=== PATIENT | female | born 1970 | race Caucasian/White ===

== ENCOUNTER 2017-06-04 09:33 | Emergency (ER) | payer OTHER ==
[~2017-06-04] VITALS: Ht 185.4 cm; Wt 115.7 kg
[~2017-06-04 09:33] MED LIST: ALDACTONE25 MG PO; AMOXICILLIN 50500 MG PO; AMOXICILLIN500 M1 PO; AMOXIL 875 MG875 M1 PO; BACTRIM DS TAB1 EACH PO; BACTROBAN22 GM TP; BENTYL 20 MG TA20 M1 PO; CEFTIN 250 MG250 MG PO; DIFLUCAN150 M1 PO; DIFLUCAN150 MG PO; DIFLUCAN200 MG PO; FLEXERIL PO; GLUCOPHAGE XR500 MG PO; GLUCOPHAGE1000 MG PO; GLUCOTROL5 MG PO; GLYBURIDE 2.52.5 MG PO; HYDROCODON-ACE1 EAC7 PO; KEFLEX250 MG PO; LANTUS; LANTUS100 UNIT/M SUBQ; METFORMIN HCL500 M2 PO; METFORMIN HCL500 M3 PO; METFORMIN HCL500 MG PO; MICROZIDE12.5 MG PO; NAPROSYN500 MG PO; NOVOLOG100 UNIT/1 SQ; ONDANSETRON HCL4 M2 PO; PENICILLIN V P500 MG PO; PROMS25 WY RECTAL; REGLAN 10 MG TA10 MG PO; TOPROL XL25 MG PO; TRAMADOL 50 MG50 MG PO; VICTOZA0.6 MG/0.1 SUBQ; ZOFRAN ODT4 MG PO; ZPAK PO
[2017-06-04 10:44] LABS: INFLUENZA A ANTIGEN None Detected (None Detect); INFLUENZA B ANTIGEN None Detected (None Detect)
[2017-06-04 11:11] LABS: ABSOLUTE BASOPHILS 0.1 thou/uL (0.0-0.2); ABSOLUTE EOSINOPHILS 0.2 thou/uL (0.0-0.7); ABSOLUTE LYMPHOCYTES 1.8 thou/uL (0.8-5.3); ABSOLUTE MONOCYTES 0.9 thou/uL (0.0-1.2); ABSOLUTE NEUTROPHILS 11.2 thou/uL (1.6-8.1); BASOPHILS 0.6 %; EOSINOPHILS 1.3 %; HEMATOCRIT 45.1 % (37.0-47.0); HEMOGLOBIN 15.5 gm/dL (12.0-15.0); LYMPHOCYTES 12.8 %; MCH 30.9 pg (26.0-34.0); MCHC 34.3 g/dL (28.0-37.0); MCV 90.3 fL (80.0-100.0); MONOCYTES 6.2 %; MPV 8.2 fl. (7.2-11.1); NUCLEATED RBCS 0 /100WBC; PLATELET COUNT* 205 thou/uL (150-400); POLYS 79.1 %; RDW-CV 13.4 % (10.5-14.5); WBC 14.1 thou/uL (4.0-11.0)
[2017-06-04 11:16] LABS: CALCIUM 8.2 mg/dL (8.5-10.1); CREATININE 0.7 mg/dL (0.6-1.3); POTASSIUM 3.7 mmol/L (3.5-5.1)
[2017-06-04 11:26] LABS: ALBUMIN 3.2 g/dL (3.4-5.0); TOTAL BILIRUBIN 0.6 mg/dL (<0.1-1.0); TOTAL PROTEIN 6.2 g/dL (6.4-8.2)
[2017-06-04] MEDS ORDERED: AMOXICILLIN 50500 MG PO (11:44)
[2017-06-04] MEDS ORDERED: GLUCOPHAGE XR500 MG PO (11:44)
[2017-06-04] MEDS ORDERED: DIFLUCAN150 MG PO (11:44)
[2017-06-04 12:00] VITALS: BP 162/76
== END 2017-06-04 12:01 | disposition home or self-care (01) ==
LOC: M.ERS 09:33
PROVIDERS: Nurse Practitioner Family
DX: J06.9 Acute upper respiratory infection, unspecified (principal); E11.9 Type 2 diabetes mellitus without complications; I10 Essential (primary) hypertension; Z90.89 Acquired absence of other organs; Z91.040 Latex allergy status; Z79.4 Long term (current) use of insulin

== ENCOUNTER 2017-11-01 12:55 | Emergency (ER) | payer OTHER ==
[~2017-11-01] VITALS: Ht 185.4 cm; Wt 111.1 kg
[2017-11-01 16:09] VITALS: BP 132/97
== END 2017-11-01 16:11 | disposition home or self-care (01) ==
LOC: M.ERS 12:55
DX: S01.01XA Laceration without foreign body of scalp, initial encounter (principal); E11.9 Type 2 diabetes mellitus without complications; I10 Essential (primary) hypertension; Z91.040 Latex allergy status; W01.0XXA Fall on same level from slipping, tripping and stumbling without subsequent striking against object, initial encounter; Y93.89 Activity, other specified; Y92.89 Other specified places as the place of occurrence of the external cause; Y99.8 Other external cause status

== ENCOUNTER 2018-04-10 07:17 | Emergency (ER) | payer OTHER ==
[~2018-04-10] VITALS: Ht 185.4 cm; Wt 109.8 kg
[2018-04-10] MEDS ORDERED: NASACORT10.8 ML INH (07:34)
[2018-04-10] MEDS ORDERED: TYLENOL EXTRA500 MG PO (07:34)
[2018-04-10] MEDS ORDERED: ADVIL200 M3 PO (07:34)
[2018-04-10 07:41] LABS: URINE BILIRUBIN NEGATIVE (Negative); URINE BLOOD TRACE (Negative); URINE CLARITY CLEAR; URINE COLOR YELLOW; URINE GLUCOSE-RANDOM 3+ (Negative); URINE KETONES TRACE (Negative); URINE LEUKOCYTES-REFLEX 1+ (Negative); URINE NITRITE-REFLEX NEGATIVE (Negative); URINE PROTEIN NEGATIVE (Negative); URINE UROBILINOGEN 0.2 E.U./dl (0.2-1.0)
[2018-04-10 07:57] LABS: ABSOLUTE BASOPHILS 0.1 thou/uL (0.0-0.2); ABSOLUTE EOSINOPHILS 0.2 thou/uL (0.0-0.7); ABSOLUTE LYMPHOCYTES 2.1 thou/uL (0.8-5.3); ABSOLUTE MONOCYTES 0.6 thou/uL (0.0-1.2); ABSOLUTE NEUTROPHILS 5.8 thou/uL (1.6-8.1); BASOPHILS 0.9 %; HEMATOCRIT 47.6 % (37.0-47.0); HEMOGLOBIN 16.5 gm/dL (12.0-15.0); LYMPHOCYTES 24.1 %; MCH 30.8 pg (26.0-34.0); MCHC 34.7 g/dL (28.0-37.0); MCV 88.9 fL (80.0-100.0); MONOCYTES 7.1 %; MPV 8.5 fl. (7.2-11.1); NUCLEATED RBCS 0 /100WBC; PLATELET COUNT* 245 thou/uL (150-400); POLYS 65.9 %; RBC 5.36 mil/uL (4.20-5.00); RDW-CV 12.5 % (10.5-14.5); WBC 8.8 thou/uL (4.0-11.0)
[2018-04-10 08:02] LABS: CREATININE 0.8 mg/dL (0.6-1.3); POTASSIUM 4.2 mmol/L (3.5-5.1)
[2018-04-10 08:06] LABS: ALBUMIN 3.7 g/dL (3.4-5.0); TOTAL BILIRUBIN 0.6 mg/dL (<0.1-1.0); TOTAL PROTEIN 7.4 g/dL (6.4-8.2)
[2018-04-10 08:42] LABS: SQUAMOUS 4-10 Moderate /LPF (0-3)
[2018-04-10 08:43] LABS: URINE WBC-REFLEX >25 Many /HPF (0-5)
[2018-04-10] MEDS ORDERED: GLUCOTROL5 MG PO (08:43)
[2018-04-10] MEDS ORDERED: DIFLUCAN150 MG PO (08:43)
[2018-04-10] MEDS ORDERED: GLUCOPHAGE850 MG PO (08:43)
[2018-04-10] MEDS ORDERED: CIPROFLOXACIN500 M1 PO (08:43)
[2018-04-10 08:44] LABS: URINE RBC None Seen /HPF (0-2); WBC CLUMPS Few (None Seen)
[2018-04-10 08:45] LABS: BACTERIA-REFLEX 1-9 Few /HPF (None Seen); CASTS None Seen /LPF (None Seen); MUCUS None Seen strn/LPF (None Seen)
[2018-04-10 08:46] LABS: CRYSTALS None Seen /LPF (None Seen); YEAST-REFLEX Present (None Seen)
[2018-04-10 08:59] VITALS: BP 146/88
== END 2018-04-10 08:59 | disposition home or self-care (01) ==
LOC: M.ERS 07:17
PROVIDERS: Family Medicine
DX: N39.0 Urinary tract infection, site not specified (principal); E11.9 Type 2 diabetes mellitus without complications; I10 Essential (primary) hypertension

== ENCOUNTER 2018-05-12 15:12 | Inpatient (IN) | payer OTHER ==
[~2018-05-12] VITALS: Ht 185.4 cm; Wt 116.1 kg
[~2018-05-12 15:12] MED LIST changes: +ADVIL200 M3 PO; +CIPROFLOXACIN500 M1 PO; +GLUCOPHAGE850 MG PO; +NASACORT10.8 ML INH; +TYLENOL EXTRA500 MG PO
[2018-05-12 15:27] VITALS: BP 205/108
[2018-05-12] MEDS ORDERED: GLUCOPHAGE XR500 MG PO (15:32)
[2018-05-12 16:00] LABS: URINE BILIRUBIN NEGATIVE (Negative); URINE BLOOD 1+ (Negative); URINE COLOR YELLOW; URINE GLUCOSE-RANDOM 2+ (Negative); URINE KETONES NEGATIVE (Negative); URINE NITRITE-REFLEX NEGATIVE (Negative); URINE PROTEIN 1+ (Negative); URINE SPECIFIC GRAVITY >= 1.030 (1.005-1.030); URINE UROBILINOGEN 0.2 E.U./dl (0.2-1.0)
[2018-05-12 16:01] LABS: URINE CLARITY CLOUDY; URINE LEUKOCYTES-REFLEX 2+ (Negative)
[2018-05-12 16:02] LABS: ABSOLUTE BASOPHILS 0.1 thou/uL (0.0-0.2); ABSOLUTE EOSINOPHILS 0.2 thou/uL (0.0-0.7); ABSOLUTE LYMPHOCYTES 3.2 thou/uL (0.8-5.3); ABSOLUTE MONOCYTES 0.9 thou/uL (0.0-1.2); ABSOLUTE NEUTROPHILS 5.6 thou/uL (1.6-8.1); BASOPHILS 0.7 %; EOSINOPHILS 2.4 %; HEMATOCRIT 46.5 % (37.0-47.0); LYMPHOCYTES 31.9 %; MCH 30.8 pg (26.0-34.0); MCHC 34.4 g/dL (28.0-37.0); MCV 89.5 fL (80.0-100.0); MONOCYTES 9.3 %; MPV 8.2 fl. (7.2-11.1); NUCLEATED RBCS 0 /100WBC; PLATELET COUNT* 255 thou/uL (150-400); POLYS 55.7 %
[2018-05-12 16:07] LABS: CALCIUM 9.6 mg/dL (8.5-10.1); CREATININE 0.7 mg/dL (0.6-1.3); POTASSIUM 4.1 mmol/L (3.5-5.1)
[2018-05-12 16:11] LABS: TOTAL BILIRUBIN 0.5 mg/dL (<0.1-1.0); TOTAL PROTEIN 7.4 g/dL (6.4-8.2)
[2018-05-12 16:15] LABS: NT-PRO BRAIN NAT PEPTIDE 340 pg/mL (<300); TROPONIN-I LEVEL <0.06 ng/mL (<0.06)
[2018-05-12 16:24] LABS: MUCUS None Seen strn/LPF (None Seen); SQUAMOUS >10 Many /LPF (0-3); URINE WBC-REFLEX >25 Many /HPF (0-5); WBC CLUMPS Few (None Seen)
[2018-05-12 16:25] LABS: URINE RBC 0-2 Rare /HPF (0-2); YEAST-REFLEX Present (None Seen)
[2018-05-12 16:31] LABS: BACTERIA-REFLEX 1-9 Few /HPF (None Seen); CASTS None Seen /LPF (None Seen); CRYSTALS None Seen /LPF (None Seen)
[2018-05-12 17:32] LABS: AMP/METHAMP Negative (Negative); BARBITURATES Negative (Negative); BENZODIAZEPINES Negative (Negative); COCAINE Negative (Negative); METHADONE Negative (Negative); OPIATES Negative (Negative); PCP Negative (Negative); THC POSITIVE (Negative)
[2018-05-12 19:46] VITALS: BP 127/76
[2018-05-13] VITALS: BP 134/83; BP 93/50
[2018-05-13 02:10] LABS: GLYCOHEMOGLOBIN (HGB A1C) 11.4 % (4.8-5.6)
[2018-05-13 04:00] VITALS: BP 140/78
[2018-05-13 05:59] LABS: HEMATOCRIT 40.7 % (37.0-47.0); MCHC 34.3 g/dL (28.0-37.0); MCV 90.4 fL (80.0-100.0); MPV 8.6 fl. (7.2-11.1); NUCLEATED RBCS 0 /100WBC; PLATELET COUNT* 197 thou/uL (150-400); RDW-CV 12.8 % (10.5-14.5); WBC 7.9 thou/uL (4.0-11.0)
[2018-05-13 06:16] LABS: ANION GAP 6 mmol/L (7-16); BUN 10 mg/dL (7-18); CALCIUM 8.6 mg/dL (8.5-10.1); CHLORIDE 102 mmol/L (98-107); CHOLESTEROL 116 mg/dL (<200); CO2 30 mmol/L (21-32); CREATININE 0.6 mg/dL (0.6-1.3); GLUCOSE 241 mg/dL (70-99); HDL CHOLESTEROL 44 mg/dL (>40); LDL CHOLESTEROL 36 mg/dL (<100); POTASSIUM 3.9 mmol/L (3.5-5.1); SERUM ASSESSMENT Clear; SODIUM 138 mmol/L (136-145); TC:HDL 2.6 Ratio (Not establshd); TRIGLYCERIDE 181 mg/dL (<150); TROPONIN-I LEVEL <0.06 ng/mL (<0.06); VLDL 36 mg/dL (<40)
[2018-05-13 06:56] LABS: ABSOLUTE EOSINOPHILS 0.2 thou/uL (0.0-0.7); ABSOLUTE LYMPHOCYTES 2.6 thou/uL (0.8-5.3); ABSOLUTE MONOCYTES 0.8 thou/uL (0.0-1.2); ABSOLUTE NEUTROPHILS 4.2 thou/uL (1.6-8.1); BASOPHILS 0.5 %; EOSINOPHILS 2.5 %; LYMPHOCYTES 33.1 %; MONOCYTES 10.7 %; POLYS 53.2 %
--- NOTE | 2018-05-13 10:57 | EKG ---
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1970 Requested By: Terence Holley Order Number: [id number] MD: Lane Blankenship Measurements Intervals [place] Rate: 80 P: 31 [place]: 193 QRS: -27 QRSD: 147 T: 86 QT: 425 QTc: 491 Interpretive Statements Sinus rhythm Probable left atrial enlargement Left bundle branch block Compared to ECG 02/02/2017 16:44:05 Left bundle-branch block now present Electronically Signed On 05-13-2018 10:56:56 CLINICAL ASST by aLne Blankenship [email or web address] <ELECTRONICALLY SIGNED> By: Lane Blankenship MD, FAC 05/13/[address] Blank[address]hip MD, [facility] /EPI
[2018-05-13 11:45] VITALS: BP 192/111
--- NOTE | 2018-05-13 14:45 | 2DMMODE ---
[place] [address] 2 D/M-MODE ECHOCARDIOGRAM Name: GENESIS COATES Sean Room: [place] [address] ADM IN [facility]#: [id number] Admission: 05/12/18 Attend Phys: Ced Khan, Discharge: Date of : 68 Date of Service: 05/13/18 1445 Report #: [id number] THIS REPORT FOR: //name// APPROVED REPORT Study performed: 05/13/2018 10:28:07 EXAM: Comprehensive 2D, Doppler, and color-flow Echocardiogram Patient Location: In-Patient Room #: [facility] Status: routine BSA: 2.39 HR: 71 bpm BP: 140/78 mmHg Rhythm: NSR Other Information Study Quality: Good Indications Hypertension/HDD 2D Dimensions IVSd: 17.02 (7-11mm) LVOT Diam: 23.03 (18-24mm) LVDd: 38.86 mm PWd: 15.61 (7-11mm) Ascending Ao: 27.66 (22-36mm) LVDs: 28.27 (25-40mm) Aortic Root: 32.48 mm Volumes Left Atrial Volume (Systole) LA ESV Index: 24.00 mL/m2 Aortic Valve AoV Peak [place].: 1.63 m/s AO Peak Gr.: 10.57 mmHg LVOT Max P.56 mmHg AO Mean Gr.: 5.88 mmHg LVOT Mean P.26 mmHg LVOT Max V: 0.80 m/s AO V2 VTI: 27.94 cm LVOT Mean V: 0.51 m/s DOTTY (VTI): 2.38 cm2 LVOT V1 VTI: 15.94 cm Mitral Valve E/A Ratio: 0.80 MV Decel. Time: 169.93 ms MV E Max [place]enton.: 0.75 m/s MV PHT: 49.28 [place] [address] 2 D/M-MODE ECHOCARDIOGRAM Name: GENESIS COATES Room: [address] IN [facility].#: [id number] Admission: 05/12/18 Attend Phys: Ced Khan, Discharge: Date of : 68 Date of Service: 05/13/18 1445 Report #: [id number] MVA (PHT): 4.46 cm2 TDI E/Lateral E': 7.50 E/Medial E': 9.38 Medial E' [place].: 0.08 m/s Lateral E' [place].: 0.10 m/s Pulmonary Valve PV Peak [place].: 1.12 m/s PV Peak Gr.: 4.98 mmHg Left Ventricle The left ventricle is normal size. There is dyssynergy of the left ventricle in systole consistent with bundle branch block. Moderate concentric left ventricular hypertrophy. Left ventricular systolic function is normal. LVEF is 55-60%. Grade I - abnormal relaxation pattern. Right Ventricle The right ventricle is normal size. The right ventricular systolic function is normal. Atria The left atrium size is normal. The right atrium size is normal. Aortic Valve The aortic valve is normal in structure. No aortic regurgitation is present. There is no aortic valvular stenosis. Mitral Valve The mitral valve is normal in structure. Trace mitral regurgitation. No evidence of mitral valve stenosis. Tricuspid Valve The tricuspid valve is normal in structure. There is no tricuspid valve regurgitation noted. Pulmonic Valve The pulmonary valve is normal in structure. There is no pulmonic valvular regurgitation. Great Vessels The aortic root is normal in size. IVC is normal in size and collapses >50% [place] [address] 2 D/M-MODE ECHOCARDIOGRAM Name: GENESIS COATES Room: [address] IN [facility]#: [id number] Admission: 05/12/18 Attend Phys: Ced Khan, Discharge: Date of : 68 Date of Service: 05/13/18 1445 Report #: [id number] inspiration. Pericardium There is no pericardial effusion. <Conclusion> The left ventricle is normal size. Moderate concentric left ventricular hypertrophy. Left ventricular systolic function is normal. LVEF is 55-60%. Grade I - abnormal relaxation pattern. Trace mitral regurgitation. IVC is normal in size and collapses >50% with inspiration. There is dyssynergy of the left ventricle in systole consistent with bundle branch block. <ELECTRONICALLY SIGNED> By: Landon Weir MD, FACC 05/13/18 1445 1445 1445 Landon Weir MD, FACC /INF
[2018-05-13] MEDS ORDERED: COZAAR 25 MG TA25 M1 PO (16:40)
[2018-05-13] MEDS ORDERED: NORVASC10 MG PO (16:44)
[2018-05-13] MEDS ORDERED: FLOMAX0.4 MG PO (16:46)
[2018-05-13] MEDS ORDERED: DIFLUCAN200 MG PO (16:47)
[2018-05-13 16:48] VITALS: BP 192/111
[2018-05-13 19:10] VITALS: BP 192/111
--- NOTE | 2018-05-14 16:51 | CARDNUC ---
[place] [address] CARDIAC NUCLEAR IMAGING REPORT Name: YANCIAUTUMNGENESIS Sean Room: [address]#: [id number] Admission: 05/12/18 Attend Phys: Ced Khan, Discharge: 05/13/18 Date of : 68 Date of Service: 05/14/18 1650 Report #: [id number] THIS REPORT FOR: //name// APPROVED REPORT Study performed: 05/13/2018 10:32:00 Indication: Chest pain Patient Location: In-Patient Room #: [facility] Stress Tech: Nicky Hodge Stress Nurse: Kaitlyn Santoro RN Ht: 6 ft 0 in Wt: 255 lbs BSA: 2.36 m2 BMI: 34.58 Medical History Medical History: Angina, HTN, Obesity , LBBB, DM. Medications: Cozaar, Glipizide, Amlodipine, Metformin, Hydralazine Allergies: Latex Cardiac Risk Factors: DM, FHX of CAD, HTN, HX of obesity. Previous Cardiac Procedures: None Pretest Chest Pain Characteristics: No chest pain Exercise History: Physically active Physical Disabilities: LBBB Meds Held (24 hrs): None Pharmacologic Stress Pharmacologic stress test was performed by injecting Regadenoson 0.4 mg IV push over 10-15 seconds immediately followed by the intravenous injection of 36.0 mCi of Tc-99m Sestamibi. Time of stress injection: 17:10 Date: 05/13/2018 Administration Route: IV Administration Site: Left Hand Heart Rate at time of stress injection: 124 bpm. Gated Stress SPECT was performed 40 minutes after stress injection. The images were gated to evaluate regional wall motion and calculate left ventricular ejection fraction. Prone imaging was performed. Stress Test Details Stress Test: Pharmacologic stress testing performed using 0.4 [place] [address] CARDIAC NUCLEAR IMAGING REPORT Name: GENESIS COATES Room: [address]#: [id number] Admission: 05/12/18 Attend Phys: Ced Khan, Discharge: 05/13/18 Date of : 68 Date of Service: 05/14/18 1650 Report #: [id number] per 5 mL given IV over 10 seconds. Reason for pharmacologic stress test: LBBB. HR Max Heart Rate (APMHR): 171 bpm Resting HR: 94 bpm Target HR (85% APMHR): 145 bpm Max HR Achieved: 124 bpm % of APMHR: 72 Recovery HR: 115 bpm BP Resting BP: 141/95 mmHg Max BP: 191/114 mmHg Recovery BP: 153/106 mmHg ECG Resting ECG: Sinus Rhythm, LBBB Stress ECG: Sinus Rhythm, LBBB ST Change: None Arrhythmia: None Recovery ECG: Sinus Rhythm, LBBB Recovery ST Change: None Recovery Arrhythmia: None Clinical The patient tolerated Lexiscan infusion without significant symptoms. Nurse Comments 48 year old inpatient presented with high anxiety and tearful. LBBB noted on EKG resulted in patient not walking for Lexiscan stress test. Patient tolerated sitting lexiscan well with minimal symptoms. Recovery unremarkable with PO caffeine. Patient escored via wheelchair to Nuclear Medicine for images. Patient stable with no complaints at that time. Stress ECG Conclusion The baseline 12-lead EKG shows sinus rhythm with left bundle-branch block. EKGs during and post Lexiscan infusion show sinus rhythm with left bundle-branch block. There were no significant stress-induced arrhythmias. Study Quality Study: [place] [address] CARDIAC NUCLEAR IMAGING REPORT Name: JAXONGENESIS Sean Room: [address]#: [id number] Admission: 05/12/18 Attend Phys: Ced Khan, Discharge: 05/13/18 Date of : 68 Date of Service: 05/14/18 1650 Report #: [id number] Artifact: No artifact Study Data Post stress, the left ventricular ejection was 59%.. Perfusion Post stress images obtained in the supine and prone position show uniform uptake of the request of the myocardium. Wall Motion Global LV systolic function appears preserved with an ejection fraction of 59%. Wall motion abnormalities were not appreciated. Nuclear Conclusion ECG Findings: non-diagnostic Clinical Findings: negative for ischemia Nuclear Findings: negative for ischemia Exercise Capacity: not assessed Left Ventricular Function: preserved Risk Study: low Myocardial perfusion images show no defect to suggest infarct or ischemia. Local LV systolic function appears normal on gated studies. This is a low risk study. <Conclusion> The baseline 12-lead EKG shows sinus rhythm with left bundle-branch block. EKGs during and post Lexiscan infusion show sinus rhythm with left bundle-branch block. There were no significant stress-induced arrhythmias. <ELECTRONICALLY SIGNED> By: Landon Weir MD, FACC 05/14/181649 49 49 Landon Weir MD, FACC /INF
== END 2018-05-13 19:04 | disposition left against medical advice (07) | DRG 690 ==
LOC: M.ERS 15:12 → M.2W 16:38 → M.TBA-ER 16:38 → M.2W 19:21
PROVIDERS: Nurse Practitioner Family; ADMIT Internal Medicine
DX: N30.90 Cystitis, unspecified without hematuria (principal); R33.9 Retention of urine, unspecified; E11.22 Type 2 diabetes mellitus with diabetic chronic kidney disease; N18.2 Chronic kidney disease, stage 2 (mild); I44.7 Left bundle-branch block, unspecified; R07.89 Other chest pain; N20.0 Calculus of kidney; I12.9 Hypertensive chronic kidney disease with stage 1 through stage 4 chronic kidney disease, or unspecified chronic kidney disease; I16.0 Hypertensive urgency; R35.0 Frequency of micturition; E86.0 Dehydration; Z53.21 Procedure and treatment not carried out due to patient leaving prior to being seen by health care provider; Z98.891 History of uterine scar from previous surgery; Z79.84 Long term (current) use of oral hypoglycemic drugs; Z91.14 Patient's other noncompliance with medication regimen; Z79.899 Other long term (current) drug therapy; Z91.040 Latex allergy status

== ENCOUNTER 2019-03-01 23:30 | Emergency (ER) | payer OTHER ==
[~2019-03-01] VITALS: Ht 185.4 cm; Wt 113.4 kg
[~2019-03-01 23:30] MED LIST changes: +COZAAR 25 MG TA25 M1 PO; +FLOMAX0.4 MG PO; +NORVASC10 MG PO
[2019-03-01] MEDS ORDERED: NEURONTIN 300M300 M2 PO (23:42)
[2019-03-01] MEDS ORDERED: BUPROPION XL150 MG PO (23:42)
[2019-03-01] MEDS ORDERED: HYDROCHLOROTHIA25 M2 PO (23:43)
[2019-03-01] MEDS ORDERED: TRESIBA100 UNIT/1 SUBQ (23:44)
[2019-03-01 23:54] LABS: ABSOLUTE BASOPHILS 0.1 thou/uL (0.0-0.2); ABSOLUTE EOSINOPHILS 0.2 thou/uL (0.0-0.7); ABSOLUTE LYMPHOCYTES 3.2 thou/uL (0.8-5.3); ABSOLUTE MONOCYTES 1.2 thou/uL (0.0-1.2); ABSOLUTE NEUTROPHILS 8.5 thou/uL (1.6-8.1); BASOPHILS 0.6 %; EOSINOPHILS 1.7 %; HEMATOCRIT 43.1 % (37.0-47.0); HEMOGLOBIN 15.1 gm/dL (12.0-15.0); LYMPHOCYTES 24.4 %; MCHC 35.1 g/dL (28.0-37.0); MCV 88.2 fL (80.0-100.0); MPV 7.7 fl. (7.2-11.1); NUCLEATED RBCS 0 /100WBC; PLATELET COUNT* 271 thou/uL (150-400); POLYS 64.3 %; RBC 4.89 mil/uL (4.20-5.00); RDW-CV 13.2 % (10.5-14.5); WBC 13.2 thou/uL (4.0-11.0)
[2019-03-02 00:01] LABS: CALCIUM 9.4 mg/dL (8.5-10.1); CREATININE 0.8 mg/dL (0.6-1.3); POTASSIUM 3.7 mmol/L (3.5-5.1)
[2019-03-02 00:06] LABS: ALBUMIN 3.7 g/dL (3.4-5.0); TOTAL BILIRUBIN 0.7 mg/dL (<0.1-1.0); TOTAL PROTEIN 7.6 g/dL (6.4-8.2)
[2019-03-02 00:14] LABS: INFLUENZA A ANTIGEN Negative (Negative); INFLUENZA B ANTIGEN Negative (Negative)
[2019-03-02 00:51] LABS: URINE BILIRUBIN NEGATIVE (Negative); URINE BLOOD NEGATIVE (Negative); URINE CLARITY CLEAR; URINE COLOR YELLOW; URINE GLUCOSE-RANDOM 1+ (Negative); URINE KETONES NEGATIVE (Negative); URINE LEUKOCYTES-REFLEX NEGATIVE (Negative); URINE NITRITE-REFLEX NEGATIVE (Negative); URINE PROTEIN NEGATIVE (Negative); URINE UROBILINOGEN 0.2 E.U./dl (0.2-1.0)
[2019-03-02] MEDS ORDERED: HYDROCODON-ACE1 EAC8 PO (01:03)
[2019-03-02] MEDS ORDERED: ZOFRAN ODT4 MG PO (01:03)
[2019-03-02 01:25] VITALS: BP 131/85
--- NOTE | 2019-03-02 17:07 | EKG ---
[place] [address] ELECTROCARDIOGRAM REPORT Name: YANCIAUTUMNGENESIS 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 : 1970 Requested By: Saima Cole Order Number: [id number] MD: Lane Blankenship Measurements Intervals [place] Rate: 86 P: 36 ID: 177 QRS: -36 QRSD: 140 T: 102 QT: 411 QTc: 492 Interpretive Statements Sinus rhythm Left bundle branch block Baseline wander in lead(s) V2 Compared to ECG 05/12/2018 16:02:42 No significant changes Electronically Signed On 03-02-2019 17:07:[address] Blankenship [email or web address] <ELECTRONICALLY SIGNED> By: Lane Blankenship MD, [facility] 03/02/[address] Blankenship MD, FACC /EPI
--- NOTE | 2019-03-02 17:08 | EKG ---
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
== END 2019-03-02 01:25 | disposition home or self-care (01) ==
LOC: M.ERS 23:30
PROVIDERS: Emergency Medicine
DX: J06.9 Acute upper respiratory infection, unspecified (principal); R42 Dizziness and giddiness; E11.9 Type 2 diabetes mellitus without complications; I10 Essential (primary) hypertension; Z98.51 Tubal ligation status; Z98.890 Other specified postprocedural states; Z79.4 Long term (current) use of insulin; Z91.040 Latex allergy status

== ENCOUNTER 2019-05-10 13:10 | Emergency (ER) | payer OTHER ==
[~2019-05-10] VITALS: Ht 185.4 cm; Wt 97.5 kg
[~2019-05-10 13:10] MED LIST changes: +BUPROPION XL150 MG PO; +HYDROCHLOROTHIA25 M2 PO; +HYDROCODON-ACE1 EAC8 PO; +NEURONTIN 300M300 M2 PO; +TRESIBA100 UNIT/1 SUBQ
[2019-05-10 13:50] LABS: HEMATOCRIT 47.2 % (37.0-47.0); HEMOGLOBIN 16.8 gm/dL (12.0-15.0); MCH 31.2 pg (26.0-34.0); MCHC 35.7 g/dL (28.0-37.0); MCV 87.5 fL (80.0-100.0); MPV 8.4 fl. (7.2-11.1); NUCLEATED RBCS 0 /100WBC; PLATELET COUNT* 244 thou/uL (150-400); RBC 5.39 mil/uL (4.20-5.00); RDW-CV 12.9 % (10.5-14.5); WBC 13.2 thou/uL (4.0-11.0)
[2019-05-10 13:56] LABS: CALCIUM 8.8 mg/dL (8.5-10.1); CREATININE 0.7 mg/dL (0.6-1.3)
[2019-05-10 14:01] LABS: ALBUMIN 3.8 g/dL (3.4-5.0); TOTAL BILIRUBIN 0.7 mg/dL (<0.1-1.0); TOTAL PROTEIN 7.7 g/dL (6.4-8.2)
[2019-05-10 14:01] LABS: INFLUENZA A ANTIGEN Negative (Negative); INFLUENZA B ANTIGEN Negative (Negative)
[2019-05-10 14:39] LABS: ABSOLUTE LYMPHOCYTES 0.7 thou/uL (0.8-5.3); ABSOLUTE MONOCYTES 1.1 thou/uL (0.0-1.2); ABSOLUTE NEUTROPHILS 11.5 thou/uL (1.6-8.1); ATYPICAL LYMPHS 3 %; PLATELET ESTIMATE ADEQUATE
[2019-05-10 14:42] LABS: URINE BILIRUBIN NEGATIVE (Negative); URINE BLOOD NEGATIVE (Negative); URINE CLARITY CLEAR; URINE COLOR YELLOW; URINE GLUCOSE-RANDOM 2+ (Negative); URINE LEUKOCYTES-REFLEX NEGATIVE (Negative); URINE NITRITE-REFLEX NEGATIVE (Negative); URINE PROTEIN NEGATIVE (Negative); URINE UROBILINOGEN 0.2 E.U./dl (0.2-1.0)
[2019-05-10 14:45] LABS: URINE KETONES 3+ (Negative)
[2019-05-10] MEDS ORDERED: KEFLEX500 M1 PO (15:43)
[2019-05-10] MEDS ORDERED: ZOFRAN ODT4 MG DISSOLVE (15:43)
[2019-05-10 16:08] VITALS: BP 130/80
== END 2019-05-10 16:10 | disposition home or self-care (01) ==
LOC: M.ERS 13:10
PROVIDERS: Nurse Practitioner Family
DX: S90.822A Blister (nonthermal), left foot, initial encounter (principal); K52.9 Noninfective gastroenteritis and colitis, unspecified; R11.2 Nausea with vomiting, unspecified; I10 Essential (primary) hypertension; E11.9 Type 2 diabetes mellitus without complications; Z90.49 Acquired absence of other specified parts of digestive tract; Z98.890 Other specified postprocedural states; Z98.51 Tubal ligation status; Z91.040 Latex allergy status; X58.XXXA Exposure to other specified factors, initial encounter; Y93.89 Activity, other specified; Y92.89 Other specified places as the place of occurrence of the external cause; Y99.8 Other external cause status

== ENCOUNTER 2020-03-08 13:01 | Emergency (ER) | payer OTHER ==
[~2020-03-08] VITALS: Ht 185.4 cm; Wt 117.9 kg
[~2020-03-08 13:01] MED LIST changes: +KEFLEX500 M1 PO; +ZOFRAN ODT4 MG DISSOLVE
[2020-03-08] MEDS ORDERED: AUGMENTIN 875-1 EACH PO (14:20)
[2020-03-08] MEDS ORDERED: IBUPROFEN 800800 M1 PO (14:20)
[2020-03-08] MEDS ORDERED: PHENERGAN 25 MG25 M1 PO (14:20)
[2020-03-08 14:45] VITALS: BP 120/77
== END 2020-03-08 14:45 | disposition home or self-care (01) ==
LOC: M.ERS 13:01
DX: J06.9 Acute upper respiratory infection, unspecified (principal); Z20.828 Contact with and (suspected) exposure to other viral communicable diseases; E11.9 Type 2 diabetes mellitus without complications; I10 Essential (primary) hypertension; Z98.51 Tubal ligation status; Z90.89 Acquired absence of other organs; Z98.890 Other specified postprocedural states; Z79.899 Other long term (current) drug therapy; Z79.4 Long term (current) use of insulin; Z91.048 Other nonmedicinal substance allergy status; Z91.040 Latex allergy status

== ENCOUNTER 2020-10-24 16:50 | Emergency (ER) | payer OTHER ==
[~2020-10-24] VITALS: Ht 185.4 cm; Wt 122.5 kg
[~2020-10-24 16:50] MED LIST changes: +AUGMENTIN 875-1 EACH PO; +IBUPROFEN 800800 M1 PO; +PHENERGAN 25 MG25 M1 PO
[2020-10-24] MEDS ORDERED: NEURONTIN 300M300 M2 PO (17:05)
[2020-10-24] MEDS ORDERED: METFORMIN HCL500 M3 PO (17:05)
[2020-10-24] MEDS ORDERED: LOSARTAN-HCTZ1 EAC3 PO (17:05)
[2020-10-24] MEDS ORDERED: LANTUS SUBQ (17:06)
[2020-10-24 19:01] LABS: ABSOLUTE BASOPHILS 0.1 thou/uL (0.0-0.2); ABSOLUTE EOSINOPHILS 0.3 thou/uL (0.0-0.7); ABSOLUTE LYMPHOCYTES 3.3 thou/uL (0.8-5.3); ABSOLUTE MONOCYTES 1.2 thou/uL (0.0-1.2); ABSOLUTE NEUTROPHILS 5.1 thou/uL (1.6-8.1); BASOPHILS 0.8 %; EOSINOPHILS 2.9 %; HEMATOCRIT 45.4 % (37.0-47.0); HEMOGLOBIN 15.9 gm/dL (12.0-15.0); LYMPHOCYTES 33.1 %; MCH 31.8 pg (26.0-34.0); MCHC 35.1 g/dL (28.0-37.0); MCV 90.5 fL (80.0-100.0); MONOCYTES 11.6 %; MPV 7.8 fl. (7.2-11.1); NUCLEATED RBCS 0 /100WBC; PLATELET COUNT* 259 thou/uL (150-400); POLYS 51.6 %; RBC 5.02 mil/uL (4.20-5.00); RDW-CV 13.9 % (10.5-14.5)
[2020-10-24 19:09] LABS: CALCIUM 8.6 mg/dL (8.5-10.1); CREATININE 0.7 mg/dL (0.6-1.3); POTASSIUM 4.3 mmol/L (3.5-5.1)
[2020-10-24 19:20] LABS: ALBUMIN 3.8 g/dL (3.4-5.0); TOTAL BILIRUBIN 0.5 mg/dL (<0.1-1.0)
[2020-10-24 20:21] VITALS: BP 147/97
== END 2020-10-24 20:21 | disposition home or self-care (01) ==
LOC: M.ERS 16:50
PROVIDERS: Nurse Practitioner Psychiatric/Mental Health
DX: R22.41 Localized swelling, mass and lump, right lower limb (principal); M79.661 Pain in right lower leg; I10 Essential (primary) hypertension; E11.9 Type 2 diabetes mellitus without complications; Z91.040 Latex allergy status; Z88.8 Allergy status to other drugs, medicaments and biological substances; Z79.4 Long term (current) use of insulin; Z79.899 Other long term (current) drug therapy; Z98.51 Tubal ligation status

== ENCOUNTER 2020-12-02 19:00 | Emergency (ER) | payer OTHER ==
[~2020-12-02] VITALS: Ht 188 cm; Wt 123.8 kg
[~2020-12-02 19:00] MED LIST changes: +LANTUS SUBQ; +LOSARTAN-HCTZ1 EAC3 PO
[2020-12-02 19:50] VITALS: BP 179/95
== END 2020-12-02 19:50 | disposition home or self-care (01) ==
LOC: M.ERS 19:00
DX: S00.83XA Contusion of other part of head, initial encounter (principal); S60.418A Abrasion of other finger, initial encounter; Y04.2XXA Assault by strike against or bumped into by another person, initial encounter; Y93.89 Activity, other specified; Y92.89 Other specified places as the place of occurrence of the external cause; Y99.8 Other external cause status

== ENCOUNTER 2021-03-06 11:10 | Emergency (ER) | payer OTHER ==
[~2021-03-06] VITALS: Ht 185.4 cm; Wt 124.7 kg
[2021-03-06] MEDS ORDERED: JARDIANCE10 MG PO (11:20)
[2021-03-06] MEDS ORDERED: LASIX 40 MG TAB40 MG PO (11:22)
[2021-03-06] MEDS ORDERED: CIPROFLOXIN HC2.5 M1 OPHTHALMIC (13:37)
[2021-03-06 13:42] VITALS: BP 134/72
== END 2021-03-06 13:42 | disposition home or self-care (01) ==
LOC: M.ERS 11:10
DX: S05.02XA Injury of conjunctiva and corneal abrasion without foreign body, left eye, initial encounter (principal); E11.9 Type 2 diabetes mellitus without complications; I50.9 Heart failure, unspecified; I11.0 Hypertensive heart disease with heart failure; Z98.51 Tubal ligation status; Z90.89 Acquired absence of other organs; Z79.4 Long term (current) use of insulin; Z79.899 Other long term (current) drug therapy; Z91.040 Latex allergy status; Z91.048 Other nonmedicinal substance allergy status; X58.XXXA Exposure to other specified factors, initial encounter; Y93.89 Activity, other specified; Y92.89 Other specified places as the place of occurrence of the external cause; Y99.8 Other external cause status

== ENCOUNTER 2021-03-20 14:29 | Emergency (ER) | payer OTHER ==
[~2021-03-20] VITALS: Ht 185.4 cm; Wt 126.1 kg
[~2021-03-20 14:29] MED LIST changes: +CIPROFLOXIN HC2.5 M1 OPHTHALMIC; +JARDIANCE10 MG PO; +LASIX 40 MG TAB40 MG PO
[2021-03-20 15:39] VITALS: BP 148/70
== END 2021-03-20 15:40 | disposition home or self-care (01) ==
LOC: M.ERS 14:29
DX: B34.9 Viral infection, unspecified (principal); Z20.822 Contact with and (suspected) exposure to COVID-19; R53.1 Weakness; E11.9 Type 2 diabetes mellitus without complications; I11.0 Hypertensive heart disease with heart failure; I50.9 Heart failure, unspecified; Z98.51 Tubal ligation status; Z90.89 Acquired absence of other organs; Z79.899 Other long term (current) drug therapy; Z91.040 Latex allergy status; Z91.048 Other nonmedicinal substance allergy status